=== PATIENT | male | born 1945 | race Caucasian/White ===

== ENCOUNTER 2017-10-18 10:50 | Emergency (ER) | payer MEDICARE, OTHER ==
[~2017-10-18] VITALS: Ht 177.8 cm; Wt 81.7 kg
[~2017-10-18 10:50] MED LIST: ARTHRITIS MED; BP MED; CIPRSO BOTHEYES; HYDCHL25 PO; HYDSUL200 PO; Hair, Skin & N1 EACH PO; Methotrexate 1 G1 GM IJ; PANT40 PO; SPIR25 PO; SULF500 PO; Simvastatin20 MG PO; ZESTRIL40 MG PO
== END 2017-10-18 12:03 | disposition home or self-care (01) ==
LOC: ER 10:50
DX: R04.0 Epistaxis (principal); Z79.899 Other long term (current) drug therapy; Z87.891 Personal history of nicotine dependence
CPT/HCPCS: 99282

== ENCOUNTER → 2020-03-01 | Outpatient (CLI) | payer MEDICARE, OTHER ==
[2020-03-01 13:58] LABS: BASOPHILS ABSOLUTE AUTO 0.06 K/mm3 (0.00-0.23); BASOPHILS PERCENT AUTO 1 % (0-2); EOSINOPHILS ABSOLUTE AUTO 0.24 K/mm3 (0.00-0.68); EOSINOPHILS PERCENT AUTO 2 % (0-6); Hematocrit 39.3 % (37.0-53.0); Hemoglobin 12.1 g/dL (13.5-17.5); IMMATURE GRAN ABSOLUTE AUTO 0.08 K/mm3 (0.00-0.10); IMMATURE GRAN PERCENT AUTO 1 % (0-1); LYMPHOCYTES ABSOLUTE AUTO 1.27 K/mm3 (0.84-5.20); LYMPHOCYTES PERCENT AUTO 12 % (21-46); MONOCYTES PERCENT AUTO 16 % (4-13); Mean Corpuscular HGB 29.9 pg (26.0-34.0); Mean Corpuscular HGB Conc 30.8 g/dL (31.5-36.5); Mean Corpuscular Volume 97 fL (80-100); Mean Platelet Volume 10.1 fL (9.1-12.4); NEUTROPHILS PERCENT AUTO 69 % (41-73); Platelet Count 132 K/mm3 (150-400); RDW Coefficient Variation 15.8 % (11.7-14.2); RDW Standard Deviation 56.6 fL (35.1-46.3); Red Blood Cell Count 4.05 M/mm3 (4.30-5.90); White Blood Cell Count 10.35 K/mm3 (4.00-11.30)
[2020-03-01 14:57] LABS: Alanine Aminotransfer (ALT/SGP 19 U/L (12-78); Albumin, Blood 3.4 g/dL (3.4-5.0); Albumin/Globulin Ratio 0.8 (0.8-1.8); Alk Phos 85 U/L (50-136); Anion Gap 6 mmol/L (6-16); Aspartate Aminotrans (AST/SGOT 29 U/L (12-37); Bilirubin, Total 0.4 mg/dL (0.1-1.0); Blood Urea Nitrogen 29 mg/dL (8-24); Bun/Creatinine Ratio 30.1 (12.0-20.0); CHOL/HDL RATIO 3.2; CO2, Blood 29 mmol/L (21-32); Calcium, Blood 9.6 mg/dL (8.5-10.1); Chloride, Blood 103 mmol/L (98-108); Cholesterol 164 mg/dL (50-200); Creatinine, Blood 0.96 mg/dL (0.60-1.20); Free Thyroxine 1.15 ng/dL (0.70-1.60); Globulin, Blood 4.2 g/dL (2.2-4.0); Glomerular Filtration Rate >60 (60-); Glucose, Blood 95 mg/dL (70-99); HDL Cholesterol 52 mg/dL (>39); LDL/HDL RATIO 1.4; Low Density Lipoprotein Chol 75 mg/dL (0-110); Sodium, Blood 138 mmol/L (136-145); Total Protein, Blood 7.6 g/dL (6.4-8.2); Triglycerides 185 mg/dL (30-160); Very Low Density Lipoprot Chol 37 mg/dL (6-32)
== END | disposition home or self-care (01) ==
LOC: LAB 12:28
PROVIDERS: Family Medicine
DX: E03.9 Hypothyroidism, unspecified (principal); I10 Essential (primary) hypertension; E78.00 Pure hypercholesterolemia, unspecified
CPT/HCPCS: 80053; 80061; 84439; 84443; 85025

== ENCOUNTER → 2021-02-03 | Outpatient (CLI) | payer MEDICARE, OTHER ==
[~2021-02-03] MED LIST changes: +AZIT250 PO
== END | disposition home or self-care (01) ==
LOC: LAB SHORT 17:29
DX: R35.0 Frequency of micturition (principal)
CPT/HCPCS: 87086

== ENCOUNTER → 2021-04-04 | Outpatient (CLI) | payer MEDICARE, OTHER | LOC: LAB SHORT 11:45 | DX: E03.9 Hypothyroidism, unspecified (principal) | CPT/HCPCS: 84443 ==

== ENCOUNTER → 2022-09-29 | Outpatient (CLI) | payer MEDICARE | END | disposition home or self-care (01) | LOC: LAB SHORT 12:56 → LAB 12:56 | DX: R42 Dizziness and giddiness (principal); R10.9 Unspecified abdominal pain | CPT/HCPCS: 87086 ==

== ENCOUNTER → 2023-11-05 | Outpatient (CLI) | payer MEDICARE ==
[2023-11-05 17:52] LABS: BASOPHILS ABSOLUTE AUTO 0.06 K/mm3 (0.00-0.23); BASOPHILS PERCENT AUTO 1 % (0-2); EOSINOPHILS ABSOLUTE AUTO 0.26 K/mm3 (0.00-0.68); EOSINOPHILS PERCENT AUTO 3 % (0-6); Hematocrit 34.4 % (37.0-53.0); Hemoglobin 11.1 g/dL (13.5-17.5); IMMATURE GRAN ABSOLUTE AUTO 0.02 K/mm3 (0.00-0.10); IMMATURE GRAN PERCENT AUTO 0 % (0-1); LYMPHOCYTES ABSOLUTE AUTO 1.49 K/mm3 (0.84-5.20); LYMPHOCYTES PERCENT AUTO 19 % (21-46); MONOCYTES ABSOLUTE AUTO 0.96 K/mm3 (0.16-1.47); MONOCYTES PERCENT AUTO 12 % (4-13); Mean Corpuscular HGB 30.2 pg (26.0-34.0); Mean Corpuscular HGB Conc 32.3 g/dL (31.5-36.5); Mean Corpuscular Volume 94 fL (80-100); Mean Platelet Volume 10.6 fL (9.1-12.4); NEUTROPHILS ABSOLUTE AUTO 5.14 K/mm3 (1.96-9.15); NEUTROPHILS PERCENT AUTO 65 % (41-73); Platelet Count 228 K/mm3 (150-400); RDW Coefficient Variation 15.6 % (11.7-14.2); RDW Standard Deviation 53.1 fL (35.1-46.3); Red Blood Cell Count 3.68 M/mm3 (4.30-5.90); White Blood Cell Count 7.93 K/mm3 (4.00-11.30)
[2023-11-06 02:01] LABS: Albumin, Blood 2.6 g/dL (3.4-5.0); Albumin/Globulin Ratio 0.6 (0.8-1.8); Bilirubin, Total 0.6 mg/dL (0.1-1.0); Calcium, Blood 8.8 mg/dL (8.5-10.1); Creatinine, Blood 1.32 mg/dL (0.60-1.20); Free Thyroxine 1.18 ng/dL (0.70-1.60); Globulin, Blood 4.5 g/dL (2.2-4.0); Potassium, Blood 3.5 mmol/L (3.5-5.5); Thyroid Stimulating Hormone 3.62 uIU/mL (0.360-4.800); Total Protein, Blood 7.1 g/dL (6.4-8.2)
== END | disposition home or self-care (01) ==
LOC: LAB SHORT 15:31 → LAB 15:31
PROVIDERS: Nurse Practitioner Family
DX: E03.9 Hypothyroidism, unspecified (principal); M06.9 Rheumatoid arthritis, unspecified; M17.9 Osteoarthritis of knee, unspecified; R29.6 Repeated falls
CPT/HCPCS: 80053; 84439; 84443; 85025

== ENCOUNTER 2025-01-04 12:08 | Emergency (ER) | payer MEDICARE ==
[~2025-01-04] VITALS: Ht 162.6 cm; Wt 54.0 kg
[~2025-01-04 12:08] MED LIST changes: +CEPH500 PO
[2025-01-04 16:08] LABS: BASOPHILS ABSOLUTE AUTO 0.04 K/mm3 (0.00-0.23); BASOPHILS PERCENT AUTO 0 % (0-2); EOSINOPHILS ABSOLUTE AUTO 0.24 K/mm3 (0.00-0.68); EOSINOPHILS PERCENT AUTO 3 % (0-6); Hematocrit 34.6 % (37.0-53.0); Hemoglobin 10.4 g/dL (13.5-17.5); IMMATURE GRAN ABSOLUTE AUTO 0.04 K/mm3 (0.00-0.10); IMMATURE GRAN PERCENT AUTO 0 % (0-1); LYMPHOCYTES ABSOLUTE AUTO 1.39 K/mm3 (0.84-5.20); LYMPHOCYTES PERCENT AUTO 14 % (21-46); MONOCYTES ABSOLUTE AUTO 0.58 K/mm3 (0.16-1.47); MONOCYTES PERCENT AUTO 6 % (4-13); Mean Corpuscular HGB Conc 30.1 g/dL (31.5-36.5); Mean Corpuscular Volume 84 fL (80-100); NEUTROPHILS ABSOLUTE AUTO 7.49 K/mm3 (1.96-9.15); NEUTROPHILS PERCENT AUTO 77 % (41-73); NRBC ABSOLUTE 0.00 K/mm3 (0.00-0.02); NRBC Auto 0.0 /100 WBC (0.0-0.2); Platelet Count 375 K/mm3 (150-400); RDW Coefficient Variation 17.2 % (11.7-14.2); RDW Standard Deviation 53.1 fL (35.1-46.3)
[2025-01-04 16:16] LABS: Alanine Aminotransfer (ALT/SGP 18.0 U/L (12-78); Albumin, Blood 2.3 g/dL (3.4-5.0); Albumin/Globulin Ratio 0.5 (0.8-1.8); Anion Gap 10.0 mmol/L (3-11); Aspartate Aminotrans (AST/SGOT 27.0 U/L (12-37); Bilirubin, Total 0.4 mg/dL (0.1-1.0); Blood Urea Nitrogen 29.0 mg/dL (8-24); CO2, Blood 26.0 mmol/L (21-32); Calcium, Blood 8.6 mg/dL (8.5-10.1); Chloride, Blood 106.0 mmol/L (98-108); Creatinine, Blood 1.13 mg/dL (0.60-1.20); Globulin, Blood 4.9 g/dL (2.2-4.0); Glucose, Blood 115.0 mg/dL (70-99); Potassium, Blood 4.0 mmol/L (3.5-5.5); Sodium, Blood 138.0 mmol/L (136-145); Total Protein, Blood 7.2 g/dL (6.4-8.2)
[2025-01-04] MEDS ORDERED: NS 1,000 ML IV SCH (18:00)
[2025-01-04 18:02] LABS: Source, Urine Clean Catch
[2025-01-04 18:10] LABS: Bilirubin, Urine Neg (Neg); Glucose Qualitative, Urine Neg (Neg); Ketones, Urine Neg (Neg); Leukocyte Esterase, Urine Neg (Neg); Protein, Urine 3+ (Neg); Specific Gravity, Urine 1.015 (1.003-1.022); Urobilinogen, Urine NORM (Normal)
[2025-01-04 18:33] LABS: Color, Urine Pale Yellow (P-Yellow); White Blood Cells, Urine 0-2 /hpf (0-5)
[2025-01-04] MEDS ORDERED: Metoprolol Tartrate 1 MG/ML 5 ML VIAL IV ONE (20:00)
[2025-01-04] MEDS ORDERED: Magnesium Sulf 2 GM/Water 50ML 50 ML IV STA (20:04)
[2025-01-05] MEDS ORDERED: Saline Nasal Spray 45 ML ONE (02:25)
[2025-01-05] MEDS ORDERED: METO25 PO (07:44)
[2025-01-05 09:30] VITALS: BP 166/79
== END 2025-01-05 09:40 | disposition home or self-care (01) ==
LOC: ER 12:08
PROVIDERS: Student in an Organized Health Care Education/Training Program
DX: S12.030A Displaced posterior arch fracture of first cervical vertebra, initial encounter for closed fracture (principal); S01.111A Laceration without foreign body of right eyelid and periocular area, initial encounter; R64 Cachexia; D64.9 Anemia, unspecified; Z79.899 Other long term (current) drug therapy; I47.19 Other supraventricular tachycardia; Z87.891 Personal history of nicotine dependence; W18.30XA Fall on same level, unspecified, initial encounter; Y92.002 Bathroom of unspecified non-institutional (private) residence as the place of occurrence of the external cause
CPT/HCPCS: 70450; 70486; 71045; 72125; 80053; 81001; 83735; 85025; 90471; 90715; 93005; 93010; 93242; 96361; 96365; 96366; 96375; 99284-25; A9270; J3475; J7030; L0160

== ENCOUNTER 2025-01-14 14:00 | Emergency (ER) | payer MEDICARE ==
[~2025-01-14] VITALS: Ht 162.6 cm; Wt 54.0 kg
[~2025-01-14 14:00] MED LIST changes: +METO25 PO
[2025-01-14 15:30] VITALS: BP 139/65
== END 2025-01-14 16:10 | disposition home or self-care (01) ==
LOC: ER 14:00
DX: S51.812A Laceration without foreign body of left forearm, initial encounter (principal); W18.30XA Fall on same level, unspecified, initial encounter; Z79.899 Other long term (current) drug therapy; M19.90 Unspecified osteoarthritis, unspecified site; Z87.891 Personal history of nicotine dependence; Z59.89 Other problems related to housing and economic circumstances
CPT/HCPCS: 99283

== ENCOUNTER 2025-02-07 14:15 | Inpatient (IN) | payer MEDICARE ==
[~2025-02-07] VITALS: Ht 162.6 cm; Wt 47.2 kg
[2025-02-07 17:29] LABS: BASOPHILS ABSOLUTE AUTO 0.05 K/mm3 (0.00-0.23); BASOPHILS PERCENT AUTO 1 % (0-2); EOSINOPHILS ABSOLUTE AUTO 0.23 K/mm3 (0.00-0.68); EOSINOPHILS PERCENT AUTO 3 % (0-6); Hematocrit 32.6 % (37.0-53.0); Hemoglobin 9.6 g/dL (13.5-17.5); IMMATURE GRAN ABSOLUTE AUTO 0.02 K/mm3 (0.00-0.10); IMMATURE GRAN PERCENT AUTO 0 % (0-1); LYMPHOCYTES ABSOLUTE AUTO 1.72 K/mm3 (0.84-5.20); LYMPHOCYTES PERCENT AUTO 23 % (21-46); MONOCYTES ABSOLUTE AUTO 0.70 K/mm3 (0.16-1.47); MONOCYTES PERCENT AUTO 9 % (4-13); Mean Corpuscular HGB Conc 29.4 g/dL (31.5-36.5); Mean Corpuscular Volume 88 fL (80-100); NEUTROPHILS ABSOLUTE AUTO 4.84 K/mm3 (1.96-9.15); NEUTROPHILS PERCENT AUTO 64 % (41-73); NRBC ABSOLUTE 0.00 K/mm3 (0.00-0.02); NRBC Auto 0.0 /100 WBC (0.0-0.2); Platelet Count 311 K/mm3 (150-400); RDW Coefficient Variation 19.8 % (11.7-14.2); RDW Standard Deviation 64.1 fL (35.1-46.3)
[2025-02-07 17:48] LABS: Alanine Aminotransfer (ALT/SGP 16.0 U/L (12-78); Albumin, Blood 2.3 g/dL (3.4-5.0); Albumin/Globulin Ratio 0.5 (0.8-1.8); Anion Gap 9.0 mmol/L (3-11); Aspartate Aminotrans (AST/SGOT 18.0 U/L (12-37); Bilirubin, Total 0.3 mg/dL (0.1-1.0); Blood Urea Nitrogen 32.0 mg/dL (8-24); CO2, Blood 26.0 mmol/L (21-32); Calcium, Blood 8.6 mg/dL (8.5-10.1); Chloride, Blood 112.0 mmol/L (98-108); Creatinine, Blood 1.18 mg/dL (0.60-1.20); Globulin, Blood 4.9 g/dL (2.2-4.0); Glucose, Blood 93.0 mg/dL (70-99); Potassium, Blood 3.5 mmol/L (3.5-5.5); Sodium, Blood 143.0 mmol/L (136-145); Total Protein, Blood 7.2 g/dL (6.4-8.2)
[2025-02-07] MEDS ORDERED: Metoprolol Tartrate 1 MG/ML 5 ML VIAL IV ONE (21:00)
[2025-02-07] MEDS ORDERED: FLU VACC TS2025(65UP)/MF59C/PF 45 MCG/0.5 ML SYRINGE IM SCH (23:10)
[2025-02-07] MEDS ORDERED: Metoprolol Tartrate 1 MG/ML 5 ML VIAL IV PRN (23:25)
[2025-02-08] VITALS (8 sets, daily range): BP systolic 129–145; BP diastolic 61–94
[2025-02-08] MEDS ORDERED: Enoxaparin 60 MG/0.6 ML SYR SC SCH (01:13)
[2025-02-08] MEDS ORDERED: Saline Nasal Spray 45 ML PRN ×2 (02:55→04:00)
--- NOTE | 2025-02-08 04:40 | NUR ---
NOC SUMMARY- PT ARRIVED TO ROOM IN NO DISTRESS. PT DENIES NECK PAIN/ DISCOMFORT. PT FOUND TO HAVE A ZIO PATCH. PT REPORTS IT WAS PLACED ON HIM LAST MONTH BY [employer]. PT DOES NOT KNOW WHY HE IS WEARING IT. PT DENIES TAKING ANY PRESCRIPTION MEDS. AT 0156 PT CONVERTED TO SINUS FROM A-FIB. PT RATE FLUCUATES FROM 70'S TO 120'S. PT HAS DIFFICULTY HOLDING ITEMS IN HIS HANDS DUE TO ARTHRITIS. PT HAS INCOTINENCE AT TIMES AND A BRIEF IS ON. PT HAS MEPILEX ON COCCYX AND BUTTOCKS FOR SMALL ULCERATIONS, PICS IN CHART. PT ONLY COMPLAINT HAS BEEN A MINOR HEADACHE. PT CURRENTLY RESTING AND BREATHING EASY. SPO2 >90%. CALL LIGHT IN REACH AND BED ALARM ON FOR SAFETY.
[2025-02-08 05:32] LABS: BASOPHILS ABSOLUTE AUTO 0.04 K/mm3 (0.00-0.23); BASOPHILS PERCENT AUTO 1 % (0-2); EOSINOPHILS ABSOLUTE AUTO 0.19 K/mm3 (0.00-0.68); EOSINOPHILS PERCENT AUTO 3 % (0-6); Hematocrit 30.9 % (37.0-53.0); Hemoglobin 9.2 g/dL (13.5-17.5); IMMATURE GRAN ABSOLUTE AUTO 0.02 K/mm3 (0.00-0.10); IMMATURE GRAN PERCENT AUTO 0 % (0-1); LYMPHOCYTES ABSOLUTE AUTO 1.39 K/mm3 (0.84-5.20); LYMPHOCYTES PERCENT AUTO 21 % (21-46); MONOCYTES ABSOLUTE AUTO 0.62 K/mm3 (0.16-1.47); MONOCYTES PERCENT AUTO 9 % (4-13); Mean Corpuscular HGB Conc 29.8 g/dL (31.5-36.5); Mean Corpuscular Volume 88 fL (80-100); NEUTROPHILS ABSOLUTE AUTO 4.44 K/mm3 (1.96-9.15); NEUTROPHILS PERCENT AUTO 66 % (41-73); NRBC ABSOLUTE 0.00 K/mm3 (0.00-0.02); NRBC Auto 0.0 /100 WBC (0.0-0.2); Platelet Count 321 K/mm3 (150-400); RDW Coefficient Variation 19.9 % (11.7-14.2); RDW Standard Deviation 63.7 fL (35.1-46.3)
[2025-02-08 06:27] LABS: Magnesium, Blood 1.8 mg/dL (1.6-2.4)
[2025-02-08 06:28] LABS: Alanine Aminotransfer (ALT/SGP 13.0 U/L (12-78); Albumin, Blood 1.9 g/dL (3.4-5.0); Albumin/Globulin Ratio 0.4 (0.8-1.8); Anion Gap 9.0 mmol/L (3-11); Aspartate Aminotrans (AST/SGOT 16.0 U/L (12-37); Bilirubin, Total 0.4 mg/dL (0.1-1.0); Blood Urea Nitrogen 28.0 mg/dL (8-24); CO2, Blood 23.0 mmol/L (21-32); Calcium, Blood 8.5 mg/dL (8.5-10.1); Chloride, Blood 113.0 mmol/L (98-108); Creatinine, Blood 1.09 mg/dL (0.60-1.20); Globulin, Blood 4.5 g/dL (2.2-4.0); Glucose, Blood 109.0 mg/dL (70-99); Potassium, Blood 3.6 mmol/L (3.5-5.5); Sodium, Blood 141.0 mmol/L (136-145); Total Protein, Blood 6.4 g/dL (6.4-8.2)
[2025-02-08] MEDS ORDERED: Albumin (Human) 25gm/100ml 100 ML IV ONE (06:55)
[2025-02-08 08:44] LABS: Influenza A, PCR NEGATIVE (NEGATIVE); Influenza B, PCR NEGATIVE (NEGATIVE); Resp Syncytial Virus, PCR NEGATIVE (NEGATIVE); SARS-Cov-2 (COVID-19) PCR, MMC NEGATIVE (NEGATIVE)
[2025-02-08] MEDS ORDERED: Enoxaparin 40 MG/0.4 ML SYR SC SCH (09:00)
--- NOTE | 2025-02-08 18:16 | NUR ---
SHIFT SUMMARY NO ACUTE CHANGES THIS SHIFT. PT A&X4, VSS. USED URINAL WITH ASSISTANCE AT BEDSIDE. UP TO BSC 1P ASSIST W/ FWW TO HAVE LARGE BM. ASPEN COLLAR IN PLACE. ORTHO CONSULTED THIS SHIFT. R JOSETTE DUPLEX DONE. STILL AWAITING ECHO. PT REPOSITIONED Q2H. MEDICATED W/ TYLENOL PER EMAR FOR HEADACHE. SPOKE TO PT'S FRIEND, [place], ([phone]) TO UPDATE. [place] STATES PT HAS COMMUNITY ASSISTANCE FROM [facility] 1X PER WEEK IN HOME. PT STATES OPEN TO MORE HELP IF POSSIBLE. PT SITTING IN BED EATING DINNER. CALL LIGHT IN REACH.
[2025-02-09 04:30] VITALS: BP 123/57
[2025-02-09 05:10] LABS: Hematocrit 28.2 % (37.0-53.0); Hemoglobin 8.4 g/dL (13.5-17.5); Mean Corpuscular HGB Conc 29.8 g/dL (31.5-36.5); Mean Corpuscular Volume 87 fL (80-100); NRBC ABSOLUTE 0.00 K/mm3 (0.00-0.02); NRBC Auto 0.0 /100 WBC (0.0-0.2); Platelet Count 287 K/mm3 (150-400); RDW Coefficient Variation 19.8 % (11.7-14.2); RDW Standard Deviation 62.9 fL (35.1-46.3)
--- NOTE | 2025-02-09 05:18 | NUR ---
NOC SHIFT SUMMARY PT IS A+OX4 HARD TO UNDERSTAND AT TIMES. VSS, TELE REMAINS IN PLACE WITH NO ACUTE EVENTS OVER NIGHT. DENIES CHEST PAIN OR PRESSURE. RA SATTING >90%, BREATHING EVEN AND UNLABORED. Q2 REPOSTIONING DURING THE NIGHT, ASPEN COLLAR IN PLACE. DENIES NEEDS OF ANYKIND. HE WAS ABLE TO REST ON AND OFF IN BETWEEN CARES. MEPLEIX TO COCCYX CHANGED DURING THE NIGHT. ALL AROUND PRESSER PROVIDED FACE WASHING AND FACIAL HAIR TRIMING. PT DOES SEEM TO HAVE ISSUES HOLDING THINGS IN HIS HANDS D/T HIS RA. BED IN LOWEST POSTION, BED ALARM ON FOR SAFETY. CALL LIGHT IN REACH.
[2025-02-09 05:37] LABS: Anion Gap 7.0 mmol/L (3-11); Blood Urea Nitrogen 29.0 mg/dL (8-24); CO2, Blood 27.0 mmol/L (21-32); Calcium, Blood 8.6 mg/dL (8.5-10.1); Chloride, Blood 111.0 mmol/L (98-108); Creatinine, Blood 1.32 mg/dL (0.60-1.20); Glucose, Blood 85.0 mg/dL (70-99); Potassium, Blood 3.3 mmol/L (3.5-5.5); Sodium, Blood 142.0 mmol/L (136-145)
[2025-02-09 09:22] VITALS: BP 134/62
--- NOTE | 2025-02-09 10:27 | NUR ---
UPDATE: UPON ASSESSMENT/REPOSITIONING PT APPEARED TO HAVED TWO SKIN TEARS ON BILATERAL POSTERIOR UPPER THIGHS. APPROX 1.5CM WIDE EACH. PLACED SQUARE MEPILEXES ON EACH SIDE. PT HAS REDNESS IN COCCYX REGION, ALSO DRESSED WITH MEPILEX AND FLOATED HIPS ON PILLOWS. REMOVED PT C-COLLAR WHILE ANIRUDH MANRIQUE STABILIZED NECK, SKIN C/D/I BENEATH COLLAR. COLLAR PLACED BACK ON PT. REDNESS NOTED ON PT CHIN/LOWER LIP.
[2025-02-09 11:31] VITALS: BP 149/74
[2025-02-09 15:51] VITALS: BP 160/76
[2025-02-09] MEDS ORDERED: Enoxaparin 60 MG/0.6 ML SYR SC SCH (16:00)
--- NOTE | 2025-02-09 16:02 | NUR ---
SHIFT SUMMARY: PT A/O X4, ABLE TO MAKE NEEDS KNOWN. STRENGTH WEAK IN ALL EXTREMITIES DUE TO BONE SPUR IN L FOOT AND HX OF RA. PT CURRENTLY DENIES PAIN. INCONTINENT THIS SHIFT DUE TO FREQUENCY/URGENCY. PT ON ROOM AIR, SATS >88%. DENIES SOB. NSR 80s, DENIES CHEST PAIN/PRESSURE. MAP >65. OTHER VSS. COCCYX AND BILATERAL POSTERIOR THIGHS DRESSED WITH MEPILEX. PT Q2 TURN THROUGHOUT SHIFT. PT CURRENTLY LYING IN BED, CALL WITHIN REACH. WILL REPORT TO ONCOMING RN.
[2025-02-09 16:31] VITALS: BP 150/82
--- NOTE | 2025-02-09 17:51 | NUR ---
UPDATE: PT UNABLE TO FEED SELF FOR MEALS THIS SHIFT. STATES "I CANT DO THIS ON MY OWN, MY HANDS ARE TOO WEAK". PT STATES HE IS ABLE TO FEED HIMSELF AT HOME, HOWEVER HE HAS NEEDED ASSISTANCE WITH MEALS AND ALL ADLS TODAY. GOT PT UP TO CHAIR THIS AFTERNOON, TOLERATED WELL WITH FWW. PT CURRENTLY SITTING UP IN CHAIR, CALL IN REACH.
[2025-02-09 20:17] VITALS: BP 157/68
[2025-02-09] MEDS ORDERED: Arginine/Glutamine/Calcium Hmb 1 Packet PO SCH (21:00)
[2025-02-10] VITALS (8 sets, daily range): BP systolic 122–1758; BP diastolic 66–84
--- NOTE | 2025-02-10 01:04 | NUR ---
nurse note PT LAST BP 178/75, CALLED ORDERS TO BE PLACED.
[2025-02-10] MEDS ORDERED: HydrALAZINE HCl 20 MG / ML 1ML Vial IV PRN (01:05)
--- NOTE | 2025-02-10 05:49 | NUR ---
NOC SHIFT SUMMARY PT IS ALERT, OREINATED TO EVERYTHING BESIDES DATE THIS SHIFT. ABLE TO EXPRESS NEEDS. GOT UP 1-2 PERSON TO THE BSC DEPENDING ON STRENGTH. HAD BM THIS SHIFT, CONT/INCOT OF URINE. PT UNABLE TO GIVE HIMSELF WATER OR DO ADL'S SUCH BLOWING HIS NOSE OR WIPPING HIS FACE. MEPLIX CHANGE ON BUTTOCK/COCCYX, WOUND CARE PROVIDED. PT HYPERTENSIVE, ORDERS OBTAINED. DENIES CHEST PAIN OR PRESSURE. RA SATTING >90% SPO2. MEDICATED FOR EARLY X2. Q2 REPOSTIONING. ASPEN COLLAR REMAINS IN PLACE, SKIN CHECK PREFORMED. BED IN LOWEST POSTION, BED ALARM ON FOR SAFETY. CALL LIGHT IN REACH.
[2025-02-10 06:12] LABS: Anion Gap 9.0 mmol/L (3-11); Blood Urea Nitrogen 36.0 mg/dL (8-24); CO2, Blood 27.0 mmol/L (21-32); Calcium, Blood 9.1 mg/dL (8.5-10.1); Chloride, Blood 107.0 mmol/L (98-108); Creatinine, Blood 1.15 mg/dL (0.60-1.20); Glucose, Blood 98.0 mg/dL (70-99); Potassium, Blood 4.0 mmol/L (3.5-5.5); Sodium, Blood 139.0 mmol/L (136-145)
--- NOTE | 2025-02-10 17:47 | NUR ---
SHIFT SUMMARY: PT A/O X4, ABLE TO MAKE NEEDS KNOWN. 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 REDRESSED STAGE 1 ULCERATION ON BUTTOCKS/POSTERIOR LEGS WITH MEPILEX TODAY. PT SBA TO BATHROOM, UP TO CHAIR FOR MOST OF THE DAY. PT CONT/INCONT DUE TO URGENCY/FREQUENCY. LAST BM TODAY. REQUIRES ASSISTANCE WITH MEALS DUE TO WEAKNESS. MEDICATED FOR HEADACHES WITH TYLENOYL PER EMAR THROUGHOUT SHIFT. PT ON ROOM AIR, SATS >95%, DENIES SOB. NSR 80s, DENIES CHEST PAIN/PRESSURE. BP ELEVATED 167/74 THIS AFTERNOON, MEDICATED WITH HYDRALAZINE PER EMAR. BP IMPROVED TO 130/67. PT DENIES ANY DIZZINESS. ALL OTHER VITAL SIGNS STABLE. PT CURRENTLY UP IN CHAIR, CALL IN REACH. WILL REPORT TO ONCOMING RN.
--- NOTE | 2025-02-10 20:00 | NUR ---
ASSUMED CARE OF PATIENT AT 1900. PATIENT A/O X 4, MAKES NEEDS KNOWN AND FOLLOWS COMMANDS. SPEECH IS SOFT AND MUMMBLED. SINUS RHYTHM 70-80s, DENIES CHEST PAIN PRESSURE. SATS > 95% ON ROOM AIR, DENIES SOB. PT IS 1P ASSIST WITH FWW TO BSC. HE IS CONT/INCONT DUE TO URGENCY/FREQUENCY, ATTENDS IN PLACE. CONTRACTURES TO BILATERAL HANDS AND FEET, HX OF RHEUMATOID ARTHRITIS. STAGE I PRESSURE WOUND TO COCCYX, MEPILEX IS C/D/I. PATIENT RESTING COMFORTABLY IN ROOM. BED LOCKED IN LOWEST POSITION, CALL LIGHT WITHIN REACH. BED ALARM ON FOR PATIENT SAFETY.
[2025-02-11] VITALS (9 sets, daily range): BP systolic 118–168; BP diastolic 51–95
[2025-02-11 05:02] LABS: BASOPHILS ABSOLUTE AUTO 0.03 K/mm3 (0.00-0.23); BASOPHILS PERCENT AUTO 0 % (0-2); EOSINOPHILS ABSOLUTE AUTO 0.42 K/mm3 (0.00-0.68); EOSINOPHILS PERCENT AUTO 5 % (0-6); Hematocrit 33.0 % (37.0-53.0); Hemoglobin 10.1 g/dL (13.5-17.5); IMMATURE GRAN ABSOLUTE AUTO 0.05 K/mm3 (0.00-0.10); IMMATURE GRAN PERCENT AUTO 1 % (0-1); LYMPHOCYTES ABSOLUTE AUTO 1.42 K/mm3 (0.84-5.20); LYMPHOCYTES PERCENT AUTO 17 % (21-46); MONOCYTES ABSOLUTE AUTO 0.80 K/mm3 (0.16-1.47); MONOCYTES PERCENT AUTO 10 % (4-13); Mean Corpuscular HGB Conc 30.6 g/dL (31.5-36.5); Mean Corpuscular Volume 86 fL (80-100); NEUTROPHILS ABSOLUTE AUTO 5.44 K/mm3 (1.96-9.15); NEUTROPHILS PERCENT AUTO 67 % (41-73); NRBC ABSOLUTE 0.00 K/mm3 (0.00-0.02); NRBC Auto 0.0 /100 WBC (0.0-0.2); Platelet Count 315 K/mm3 (150-400); RDW Coefficient Variation 19.9 % (11.7-14.2); RDW Standard Deviation 60.4 fL (35.1-46.3)
[2025-02-11 05:22] LABS: Anion Gap 7.0 mmol/L (3-11); Blood Urea Nitrogen 41.0 mg/dL (8-24); CO2, Blood 31.0 mmol/L (21-32); Calcium, Blood 9.0 mg/dL (8.5-10.1); Chloride, Blood 102.0 mmol/L (98-108); Creatinine, Blood 1.06 mg/dL (0.60-1.20); Glucose, Blood 97.0 mg/dL (70-99); Magnesium, Blood 1.5 mg/dL (1.6-2.4); Potassium, Blood 4.1 mmol/L (3.5-5.5); Sodium, Blood 136.0 mmol/L (136-145)
--- NOTE | 2025-02-11 05:57 | NUR ---
SHIFT SUMMARY SEE PREVIOUS NOTES. PATIENT REMAINS A/O X 4 AND IS COOPERATIVE WITH CARE. BLOOD PRESSURES ELEVATED, SBPs 130-140s. ALL OTHER VSS . HE TOLERATES Q2 REPOSITIONS WELL. PATIENT DID COMPLAIN OF HEADACHE THIS MORNING THAT IMPROVED WITH TYLENOL , SEE EMAR. NO ACUTE CHANGES THIS SHIFT. PATIENT RESTING COMFORTABLY IN ROOM. BED LOCKED IN LOWEST POSITION AND CALL LIGHT WITHIN REACH. BED ALARM ON FOR PATIENT SAFETY.
--- NOTE | 2025-02-11 15:51 | NUR ---
SHIFT SUMMARY: PT A/O X4, ABLE TO MAKE NEEDS KNOWN. CONTRACTURES PRESENT IN BLE AND BILAT HANDS. MEPILEX PLACED ON COCCYX AND POSTERIOR THIGHS. SBA TO BATHROOM, INCONT ALL OF DAY SHIFT. UP TO CHAIR MOST OF DAY. ROOM AIR, SATS >95%. DENIES SOB. NSR 70s, DENIES CHEST PAIN/PRESSURE. BP ELEVATED AT TIMES, MD AT BEDSIDE THIS AFTERNOON AND INCREASED METOPROLOL FREQUENCY. ALL OTHER VITAL SIGNS STABLE. AWAITING ON [facility] TO [facility]. PT SITTING UP IN CHAIR, CALL IN REACH. WILL REPORT TO ONCOMING RN.
[2025-02-12 03:33] VITALS: BP 132/53
[2025-02-12 05:02] LABS: Anion Gap 8.0 mmol/L (3-11); Blood Urea Nitrogen 50.0 mg/dL (8-24); CO2, Blood 32.0 mmol/L (21-32); Calcium, Blood 9.1 mg/dL (8.5-10.1); Chloride, Blood 102.0 mmol/L (98-108); Creatinine, Blood 1.29 mg/dL (0.60-1.20); Glucose, Blood 90.0 mg/dL (70-99); Potassium, Blood 3.6 mmol/L (3.5-5.5); Sodium, Blood 138.0 mmol/L (136-145)
--- NOTE | 2025-02-12 05:26 | NUR ---
NO ACUTE EVENTS OVERNIGHT. PT FOLLOWS COMMANDS. CALLS APPROPRIATELY. ASPEN COLLAR IN PLACE D/T C-1 FX. PT IS INCONTINENT. PT IS ALSO A FEEDER D/T RHEUMATOID ARTHRITIS THAT HAS CAUSED PT TO HAVE CONTRACTURES. BED IS LOCKED IN LOWEST POSITION. CALL LIGHT WITHIN REACH.
[2025-02-12 07:58] VITALS: BP 127/72
--- NOTE | 2025-02-12 13:31 | NUR ---
TRANSFER NOTE PT ALERT, ABLE TO MAKE NEEDS KNOWN. VSS. USES URINAL AT BEDSIDE. ABLE TO WORK W/ PT/OT. C/O OF HEADACHE, MEDICATED W/ TYLENOL PER EMAR. UP TO CHAIR FOR LUNCH. REPORT GIVEN TO MEDICAL FLOOR RN. PT TO BE TRANSFERRED TO ROOM 339.
[2025-02-12 14:15] VITALS: BP 111/54
--- NOTE | 2025-02-12 14:34 | NUR ---
PT TRANSFERED TO MEDICAL FLOOR FROM PCU. BEDS SWITCHED. PT AWAKE AND ALERT, RESPONSIVE TO RN QUESTIONS AND ANSWERS APPROPRIATELY. PT REPORTS HEADACHE, TYLENOL PROVIDED PER EMAR. NO ISSUES SWALLOWING NOTED. ATTENDS CLEAN AND DRY, MEPILEX TO COCCYX AND POSTERIOR THIGHS C/D/I. PT REPORTS FEELING TIRED AND WANTING TO REST HE HAS BEEN AWAKE MAJORITY OF DAY AND JUST FINISHED A TURKEY LUNCH. PT RESTING PEACEFULLY IN BED WITH BED IN LOWEST POSITION AND CALL LIGHT WITHIN REACH. ASSISTED PT WITH FINDING TV SHOW, LIGHTS TURNED OFF PER PT REQUEST. REORIENTED TO CALL SYSTEM.
[2025-02-12 16:30] VITALS: BP 140/75
--- NOTE | 2025-02-12 16:47 | NUR ---
RN RECIEVED CALL FROM PCU BREAK NURSE INFORMING PT MED REC WAS NOT COMPLETED UPON ADMISSION. PER PT, HE DOES NOT TAKE ANYTHING AT HOME ROUTINELY/ON A DAILY BASIS. MED REC COMPLETED AND UPDATED TO SHOW PT DOES NOT TAKE ANY HOME MEDICATIONS.
[2025-02-12 19:46] VITALS: BP 105/49
[2025-02-12 21:15] VITALS: BP 115/65
[2025-02-13 03:42] VITALS: BP 143/70
--- NOTE | 2025-02-13 04:01 | NUR ---
SHIFT SUMMARY PATIENT IS ALERT AND ORIENTED. PATIENT HAS HAD NO ACUTE EVENTS THIS SHIFT. VITAL SIGNS REVIEWED. PATIENT HAS REPORTED A HEADACHE THIS SHIFT AND MEDICATED PER EMAR. PATIENT HAS NO REPORTS OF ANY OTHER PAIN THIS SHIFT. PATIENT HAS NO REPORTS OF SOB, NAUSEA OR VOMITTING THIS SHIFT. MEPILEX TO COCCYC AND THIGHS C/D/I. PATIENT HAS BEEN TURNED Q2 FOR MOBILITY ISSUES. BED IN LOCKED AND LOWEST POSITION. CALL LIGHT IN PLACE.
[2025-02-13 07:51] VITALS: BP 139/77
[2025-02-13 13:44] VITALS: BP 120/68
[2025-02-13 15:49] VITALS: BP 138/50
[2025-02-13] MEDS ORDERED: ELIQUIS5 M2 PO (16:31)
[2025-02-13] MEDS ORDERED: Acetaminophen325 M1 PO (16:31)
[2025-02-13] MEDS ORDERED: JUVEN PACKET1 EAC3 PO (16:33)
[2025-02-13] MEDS ORDERED: Lopressor 25 mg25 MG PO (16:36)
[2025-02-13] MEDS ORDERED: DIGOX125 MC1 PO (16:36)
--- NOTE | 2025-02-13 17:46 | NUR ---
NURSE NOTE; REPORT GIVEN TO [facility] TO [facility] VIA PHONE.
--- NOTE | 2025-02-13 17:50 | NUR ---
DRESSING ON COCCYX AND BILATERAL POSTERIOR THIGHS/DIANNA PROMINENCE CHANGED. FACIAL HEAR SHAVED,MAT OF HAIR/SORE SPOT UNDER NECK BRACE COVERED WITH TRIPLE ANTIBIOTIC AND A FOAM DRESSING.
--- NOTE | 2025-02-13 18:46 | NUR ---
DISCHARGE NOTE: MEDICAL TRANSPORT ARRIVED; PACKET PROVIDED. PATIENT GIVEN EVENING MEDS PER [facility] REQUEST. BELONGINGS PROVIDER. PATIENT WHEELED OUT IN WHEELCHAIR. NO SIGNS OR SYMPTOMS OF DISTRESS DURING DISCHARGE.
== END 2025-02-13 18:50 | DRG 308 ==
LOC: ER 14:15 → PCU 14:16 → ERHOLD 14:16 → PCU 02-08 00:56 → ERHOLD 02-08 00:56 → MEDS 02-08 15:16 → PCU 02-08 15:16 → MEDS 02-12 14:17 → ENPENDDIS 02-13 15:32 → MEDS 02-13 18:50
PROVIDERS: Emergency Medicine; Internal Medicine; ADMIT Internal Medicine
DX: I47.19 Other supraventricular tachycardia (principal); I50.31 Acute diastolic (congestive) heart failure; S12.120A Other displaced dens fracture, initial encounter for closed fracture; J44.0 Chronic obstructive pulmonary disease with (acute) lower respiratory infection; I82.442 Acute embolism and thrombosis of left tibial vein; E44.0 Moderate protein-calorie malnutrition; Z68.1 Body mass index [BMI] 19.9 or less, adult; Z66 Do not resuscitate; M06.9 Rheumatoid arthritis, unspecified; M19.072 Primary osteoarthritis, left ankle and foot; M14.672 Charcot's joint, left ankle and foot; J20.9 Acute bronchitis, unspecified; L89.151 Pressure ulcer of sacral region, stage 1; I11.0 Hypertensive heart disease with heart failure; J43.9 Emphysema, unspecified; I35.0 Nonrheumatic aortic (valve) stenosis; E78.5 Hyperlipidemia, unspecified; W19.XXXA Unspecified fall, initial encounter; R09.81 Nasal congestion; Z99.81 Dependence on supplemental oxygen; Z87.891 Personal history of nicotine dependence
CPT/HCPCS: 36415; 71260; 72125; 80048; 80053; 80162; 82565; 83735; 83880; 84484; 85025; 85027; 87637; 93005; 93010; 93306; 93971; 94762; 96372; 96374-59; 96375; 96376; 97110; 97116; 97161; 97166; 97530; 97535; 99285-25; A9270; G0378; J0360; J0456; J1160; J1650; J1938; J7050; P9047; Q9967